=== PATIENT | male | born 1960 | race Caucasian/White ===

== ENCOUNTER → 2024-12-20 08:19 | Outpatient (REF) | payer MEDICARE, SELFPAY | LOC: DHSLP 08:19 | PROVIDERS: ATTENDING PHYSICIAN Internal Medicine Pulmonary Disease; FAMILY PHYSICIAN Family Medicine | DX: G47.33 Obstructive sleep apnea (adult) (pediatric) (principal) | CPT/HCPCS: 95810 ==